=== PATIENT | female | born 1980 | race Caucasian/White ===

== ENCOUNTER 2017-02-17 09:03 | Emergency (ER) | payer BC ==
[2017-02-17] MEDS ORDERED: ASPIRIN 325 MG TABLET PO ONE (09:27)
--- NOTE | 2017-02-17 09:35 | Emergency Department Record ---
Anxiety - General Chief Complaint: Panic attack Stated Complaint: ANXIETY Time Seen by Provider: 02/17/17 09:18 Source: Patient Mode of Arrival: Ambulatory Limitations: No limitations - History of Present Illness Initial Comments: The patient is here from [facility] due to not feeling well for 2 days. She has had sharp anterior L sided CP off and on and it is associated with mild SOB at times. She denies any nausea, sweating, lightheadedness or back pain. The patient has been under a lot of stress lately and also did see her PCP last week who started her on a new OCP to manage her hormones. She started that medicine 5 days ago. She has no hx of any cardiac issues, anxiety, recent travel , leg pain, or swelling, CP with exertion or TRAN. The patient's only cardiac risk factor is possibly a family hx of CAD. MD Complaint: Other Onset/Timin -: Days(s) Place: Home Previous History of Same: Yes (not this bad) Provoking factors: Emotional stress, Work/job stress, Medication change Improves With: Nothing Worsens With: Nothing Associated symptoms: Chest pain, Headaches, Palpitations, Shortness of breath - Related Data Home Medications: Home Medications Medication Instructions Recorded Confirmed Last Taken Ethinyl Estradiol/Drospirenone 1 each PO DAILY 02/17/17 02/17/17 1 Day Ago [Ifeoma 28 Tablet] ~02/16/17 Previous Rx's Medication Instructions Recorded Lorazepam [Ativan] 1 mg PO Q12HR #6 tablet 02/17/17 Allergies/Adverse Reactions: Allergies Allergy/AdvReac Type Severity Reaction Status Date / Time No Known Drug Allergies Allergy Verified 02/17/17 09:11 Travel Screening - Travel/Exposure Within Last 30 Days Have you traveled within the last 30 days?: No - Travel/Exposure Within Last Year Have you traveled outside the [place] in the last year?: No - Additonal Travel Details Have you been exposed to anyone with a communicable illness?: No - Travel Symptoms Symptom Screening: None Review of Systems Constitutional: Denies: Chills, Fever Eyes: Denies: Eye discharge ENT: Denies: Congestion Respiratory: Denies: Cough, Dyspnea Past Medical History - SOCIAL HISTORY Smoking Status: Never smoker Alcohol Use: Occasional Drug Use: None - RESPIRATORY Hx Respiratory Disorders: No - CARDIOVASCULAR Hx Cardio Disorders: No - NEURO Hx Neuro Disorders: No - GI Hx GI Disorders: Yes Hx Pancreatitis: Yes Comment:: Colitis. - Hx Genitourinary Disorders: No - ENDOCRINE Hx Endocrine Disorders: Yes Hx Thyroid Disease: Yes - MUSCULOSKELETAL Hx Musculoskeletal Disorders: No - PSYCH Hx Anxiety: Yes (intermittant) - HEMATOLOGY/ONCOLOGY Hx Hematology/Oncology Disorders: No Family Medical History Any Significant Family History?: Yes Hx Diabetes: Mother Hx Heart Disease: Grandparents Hx HTN: Father, Mother Hx Liver Disease: Mother, Grandparents Physical Exam - General General Appearance: Alert, Oriented x3, Cooperative, No acute distress - Head Head exam: Atraumatic, Normocephalic, Normal inspection - Eye Eye exam: Normal appearance, PERRL, EOMI - ENT Throat exam: Normal inspection. negative: Tonsillar erythema, Tonsillar exudate - Neck Neck exam: Normal inspection, Full ROM. negative: Tenderness - Respiratory Respiratory exam: Normal lung sounds bilaterally. negative: Chest wall tenderness, Respiratory distress - Cardiovascular Cardiovascular Exam: Regular rate, Normal rhythm, Normal heart sounds. negative : Diastolic murmur, Systolic murmur - GI/Abdominal GI/Abdominal exam: Soft, Normal bowel sounds. negative: Tenderness - Extremities Extremities exam: Normal inspection, Full ROM, Normal capillary refill. negative: Calf tenderness, Pedal edema, Tenderness - Back Back exam: Reports: Normal inspection - Neurological Neurological exam: Alert, Oriented X3. negative: Motor sensory deficit - Psychiatric Psychiatric exam: Anxious (mildly.) Course Vital Signs 02/17/17 09:06 Temperature 98.5 F Pulse Rate 87 Respiratory 18 Rate Blood Pressure 152/116 Pulse Ox 99 - Reevaluation(s) Reevaluation #1: The patient is doing much better and is much more calm. She denies any significant CP or any SOB or FORREST and is no longer anxious. I did explain to her that her test results all are very normal and do point to anxiety as the probable cause of her issues. Because it is not 100% clear if she is having any cardiac issues I did recommend hospital admission for a stress test and cardiac echo but the patient is refusing. I explained to her that by NOT being admitted she could go home and have an MS, stroke, become disabled and even . By leaving the ER and not being admitted she would be assuming those risks and we cannot be held liable for those issues. The patient presently has proper decision making capacity and was told to see her PCP early next week and to return to the ER for any new or changing symptoms. 02/17/17 11:12 Medical Decision Making - Data Complexity MDM Data: Labs Ordered and/or Reviewed, X-Ray Ordered and/or Reviewed, EKG Ordered and/or Reviewed - Lab Data Result diagrams: 02/17/17 09:58 02/17/17 09:58 - EKG Data -: EKG Interpreted by Me EKG: No Acute Changes, Normal EKG - Radiology Data Radiology results: Report reviewed (CXR: Neg.) Disposition Disposition: Discharge Clinical Impression: Anxiety Disposition: Home, Self-Care Condition: (1) Good Instructions: Panic Disorder (ED) Additional Instructions: Please stop your new hormone medicine and use the Ativan as directed. Please see your PCP early next week for recheck. Return to the ER for any worsening or increasing pain, or any trouble breathing or shortness of breath. Prescriptions: Lorazepam [Ativan] 1 mg PO Q12HR #6 tablet Forms: Patient Portal Access Time of Disposition: 11:17 Quality - Quality Measures Quality Measures: N/A - Blood Pressure Screening View Details: Yes Does Patient Have Any of the Following: No Blood Pressure Classification: Hypertensive Reading Systolic Measurement: 152 Diastolic Measurement: 116 Screening for High Blood Pressure: < Pre-Hypertensive BP, F/U Documented > [ G8950] Pre-Hypertensive Follow-up Interventions: Referral to alternative/primary care provider.
[2017-02-17 10:08] LABS: BASO % 0.4 % (0-6); EOS % 2.9 % (0-6); GRAN % 58.4 % (47-80); HEMATOCRIT 40.1 % (35.0-47.0); HEMOGLOBIN 12.8 gm/dl (11.6-16.0); LYMPH % 30.6 % (16-45); MEAN CELL VOLUME 89.7 fl (81-97); MEAN CORPUSCULAR HEMOGLOBIN 28.6 pg (27-33); MEAN CORPUSCULAR HGB CONC 31.9 g/dl (32-36); MEAN PLATELET VOLUME 10.5 fl (7.4-10.4); MONO % 7.7 % (0-9); PLATELET COUNT 385 K/uL (130-400); RED BLOOD COUNT 4.47 M/uL (3.80-5.40); RED CELL DISTRIBUTION WIDTH 14.1 % (11.5-14.5); WHITE BLOOD COUNT W/O DIFF 7.3 K/uL (4.2-12.2)
[2017-02-17 10:24] LABS: INR 0.93
[2017-02-17 10:39] LABS: CREATININE 0.7 mg/dL (0.5-0.9); EST GLOMERULAR FILTRATION RATE > 60 mL/min; GLUCOSE,RANDOM 95 mg/dL (74-109)
[2017-02-17 10:40] LABS: CKMB < 1.0 ng/mL (<3.77); CREATINE PHOSPHOKINASE 82 U/L (26-192)
[2017-02-17 10:47] LABS: BLOOD UREA NITROGEN 12 mg/dL (6-20); THYROID STIMULATING HORMONE 1.85 uIU/mL (0.270-4.20)
--- NOTE | 2017-02-18 12:30 | RADIOLOGY REPORT ---
EXAM: CHEST 2 VIEWS HISTORY: DIFFICULTY IN BREATHING. TECHNIQUE: Frontal and lateral views of the chest were performed. FINDINGS: Heart size is normal. Lung ko are clear. Osseous structures are normal. IMPRESSION: NEGATIVE CHEST EXAMINATION. JOB NUMBER: [id number] MTDD
== END 2017-02-17 11:21 | disposition home or self-care (01) ==
LOC: ER 09:03
DX: F41.9 Anxiety disorder, unspecified (principal); R07.89 Other chest pain; R06.02 Shortness of breath; R51 Headache
CPT/HCPCS: 71020; 80048; 82550; 82553; 84443; 84484; 85025; 85379; 85610; 85730; 93005; 93010; 99284

== ENCOUNTER 2018-06-08 14:52 | Emergency (ER) | payer BC ==
--- NOTE | 2018-06-08 15:13 | Emergency Department Record ---
History of Present Illness - General Chief Complaint: Shortness of breath Stated Complaint: CHEST DISCOMFORT Time Seen by Provider: 06/08/18 14:56 Source: Patient, Old records reviewed Mode of Arrival: Ambulatory Limitations: No limitations - History of Present Illness Initial Comments: 37 yo female presents with a feeling of shortness of breath that started around 10am. She states throughout the day she has had a mild dry cough. She has felt tired. She states when she lays down, coughs, or takes a deep breath she has a sensation of not being able to take the deep breath. She feels a tightness with coughing, laying down (relieved sitting up), and taking a deep breath. No fever. 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 She does not smoke, no cancer history, no recent travel or surgery, no HRT, no family history of CAD or PE/DVT. NO DM, elevated cholesterol, HTN. She reports she has had pneumonia several times in the past. She reports the symptoms are similar. MD Complaint: Cough, Pain with inspiration, Shortness of breath -: Hour(s) Quality: Other Consistency: Intermittent Improves With: Rest (shallow breathing, sitting up) Worsens With: Coughing, Inspiration, Lying flat Known History Of: Other (History of pneumonia once a year) Associated Symptoms: Chest pain, Cough Treatments Prior to Arrival: None - Related Data Home Medications Medication Instructions Recorded Confirmed Last Taken Omeprazole [Prilosec] 20 mg PO DAILY 06/08/18 06/08/18 Unknown Previous Rx's Medication Instructions Recorded Azithromycin [Zithromax] 250 mg PO DAILY #4 tablet 06/08/18 Benzonatate [Tessalon] 2 cap PO Q8H PRN #30 cap 06/08/18 Allergies Allergy/AdvReac Type Severity Reaction Status Date / Time No Known Drug Allergies Allergy Unverified 06/08/18 14:28 Review of Systems Constitutional: Denies: Chills, Fever, Malaise, Night sweats, Weakness Eyes: Denies: Eye discharge, Eye pain, Photophobia, Vision change ENT: Denies: Congestion, Ear pain, Epistaxis, Throat pain Respiratory: Reports: As per HPI, Cough, Dyspnea. Denies: Hemoptysis, Stridor, Wheezes Cardiovascular: Reports: As per HPI, Chest pain. Denies: Dyspnea on exertion, Edema, Palpitations, Syncope Endocrine: Denies: Fatigue, Polydipsia, Polyuria Gastrointestinal: Denies: Abdominal pain, Diarrhea, Nausea, Vomiting Genitourinary: Denies: Dysuria, Urgency Musculoskeletal: Denies: Arthralgia, Back pain, Myalgia Skin: Denies: Bruising, Change in color, Rash Neurological: Denies: Confusion, Headache, Weakness Psychiatric: Denies: Anxiety Hematological/Lymphatic: Denies: Blood Clots, Easy bleeding, Easy bruising, Swollen glands Past Medical History - SOCIAL HISTORY Smoking Status: Never smoker Drug Use: None - RESPIRATORY Hx Respiratory Disorders: No - CARDIOVASCULAR Hx Cardio Disorders: No - NEURO Hx Neuro Disorders: No - GI Hx GI Disorders: Yes Hx Pancreatitis: Yes Comment:: Colitis. - Hx Genitourinary Disorders: No - ENDOCRINE Hx Endocrine Disorders: Yes Hx Thyroid Disease: Yes - MUSCULOSKELETAL Hx Musculoskeletal Disorders: No - PSYCH Hx Anxiety: Yes (intermittant) - HEMATOLOGY/ONCOLOGY Hx Hematology/Oncology Disorders: No Family Medical History Hx Diabetes: Mother Hx Heart Disease: Grandparents Hx HTN: Father, Mother Hx Liver Disease: Mother, Grandparents Physical Exam - General General Appearance: Alert, Oriented x3, Cooperative, No acute distress Limitations: No limitations - Head Head exam: Atraumatic, Normocephalic, Normal inspection - Eye Eye exam: Normal appearance, PERRL. negative: Conjunctival injection, Scleral icterus - ENT ENT exam: Normal exam, Mucous membranes moist, Normal orophraynx Ear exam: Normal external inspection Nasal Exam: Normal inspection Mouth exam: Normal external inspection Teeth exam: Normal inspection Throat exam: Normal inspection - Neck Neck exam: Normal inspection, Full ROM. negative: Lymphadenopathy, Tenderness, Thyromegaly - Respiratory Respiratory exam: Normal lung sounds bilaterally. negative: Accessory muscle use, Chest wall tenderness, Decreased breath sounds, Prolonged expiratory, Rales , Respiratory distress, Rhonchi, Stridor, Wheezes - Cardiovascular Cardiovascular Exam: Regular rate, Normal rhythm, Normal heart sounds. negative : Diastolic murmur, Systolic murmur Peripheral Pulses: 2+: Radial (R), Radial (L) - GI/Abdominal GI/Abdominal exam: Soft. negative: Distended, Guarding, Tenderness - Rectal Rectal exam: Deferred - exam: Deferred - Extremities Extremities exam: Normal inspection. negative: Pedal edema, Tenderness - Back Back exam: Denies: CVA tenderness (R), CVA tenderness (L), Tenderness - Neurological Neurological exam: Alert, Normal gait, Oriented X3 - Psychiatric Psychiatric exam: Normal affect, Normal mood. negative: Agitated, Anxious - Skin Skin exam: Dry, Intact, Normal color, Warm Course - Reevaluation(s) Reevaluation #1: EKG #1: Rate: 94 Rhythm: Sinus Remlap: Left Intervals: QTc [address] ST segments: Normal Probable LVH Prior: No changes on today's EKG from the prior on 02/17/17 06/08/18 14:59 06/08/18 16:00 The D-Dimer is negative The Troponin is negative The CBC demonstrated a WBC count of 22 with a left shift An Influenza swab was sent with her cough, and symptoms CXR ordered. 06/08/18 16:26 The influenza swabs are negative 06/08/18 16:33 The patient is HEART SCORE of 2 (BMI >30, Possible LVH - not new). 06/08/18 16:35 06/08/18 16:45 The CXR was read as negative Given her symptoms and history of pneumonia in the past with the current leukocytosis I recommend antibiotics at this time Medical Decision Making - Lab Data Result diagrams: 06/08/18 15:00 06/08/18 15:00 Disposition Disposition: Discharge Clinical Impression: Cough, Atypical chest pain Disposition: Home, Self-Care Condition: (1) Good Instructions: Dyspnea (ED), Chest Pain (ED) Additional Instructions: Call your doctor for the next available follow up appointment Return to the ER for a recheck if worse, any new concerns or questions over the weekend Take the prescriptions provided as directed Review this ER visit and the tests performed with your family doctor Prescriptions: Azithromycin [Zithromax] 250 mg PO DAILY #4 tablet Benzonatate [Tessalon] 2 cap PO Q8H PRN #30 cap PRN Reason: Cough Referrals: SUSHMA DE LA CRUZ M.D. [MEDICAL DOCTOR] - [facility] [Provider Group] Forms: Patient Portal Access Time of Disposition: 16:46 Quality - Blood Pressure Screening Does Patient Have Any of the Following: No Blood Pressure Classification: Hypertensive Reading Systolic Measurement: 142 Diastolic Measurement: 105 Pre-Hypertensive Follow-up Interventions: Referral to alternative/primary care provider.
[2018-06-08 15:32] LABS: HEMATOCRIT 42.9 % (35.0-47.0); HEMOGLOBIN 14.2 gm/dl (11.6-16.0); MEAN CELL VOLUME 90.1 fl (81-97); MEAN CORPUSCULAR HEMOGLOBIN 29.8 pg (27-33); MEAN CORPUSCULAR HGB CONC 33.1 g/dl (32-36); MEAN PLATELET VOLUME 10.7 fl (7.4-10.4); PLATELET COUNT 396 K/uL (130-400); RED BLOOD COUNT 4.76 M/uL (3.80-5.40); RED CELL DISTRIBUTION WIDTH 14.2 % (11.5-14.5); URINE APPEARANCE CLEAR; URINE BILIRUBIN NEGATIVE (NEGATIVE); URINE BLOOD NEGATIVE (NEGATIVE); URINE COLOR YELLOW; URINE GLUCOSE (UA) NEGATIVE (NEGATIVE); URINE KETONE 40 mg/dL (NEGATIVE); URINE LEUKOCYTE ESTERASE SMALL (NEGATIVE); URINE NITRITE NEGATIVE (NEGATIVE); URINE PROTEIN NEGATIVE (NEGATIVE); URINE UROBILINOGEN 0.2 E.U./dL (0.20 - 1.00)
[2018-06-08 15:36] LABS: WHITE BLOOD COUNT W/O DIFF 22.1 K/uL (4.2-12.2)
[2018-06-08 15:39] LABS: PLATELET ESTIMATE NORMAL (NORMAL)
[2018-06-08 15:41] LABS: HCG,QUALITATIVE URINE NEGATIVE (NEGATIVE); URINE BACTERIA NONE SEEN; URINE EPITHELIAL CELLS 0 - 2 (FEW); URINE RBC NONE SEEN (NONE SEEN)
[2018-06-08 15:45] LABS: BLOOD UREA NITROGEN 13 mg/dL (6-20); CREATININE 0.7 mg/dL (0.5-0.9); EST GLOMERULAR FILTRATION RATE > 60 mL/min
[2018-06-08 15:46] LABS: TOTAL PROTEIN 8.5 g/dL (6.6-8.7)
[2018-06-08 15:48] LABS: GLUCOSE,RANDOM 75 mg/dL (74-109)
[2018-06-08 15:50] LABS: ALT/SGPT 27 U/L (<33)
[2018-06-08 15:51] LABS: ALB/GLOB RATIO 1.4 (1.1-1.8); ALBUMIN 4.9 g/dL (4.0-5.0); ALKALINE PHOSPHATASE 101 U/L (45-87); AST/SGOT 26 U/L (10.0-35.0)
[2018-06-08] MEDS ORDERED: 0.9 % SODIUM CHLORIDE 1,000 ML BAG IV ONE (15:53)
[2018-06-08 16:02] LABS: THYROID STIMULATING HORMONE 1.32 uIU/mL (0.270-4.20)
[2018-06-08 16:21] LABS: INFLUENZA A NEGATIVE (NEGATIVE); INFLUENZA B NEGATIVE (NEGATIVE)
[2018-06-08] MEDS ORDERED: AZITHROMYCIN 500 MG TABLET PO ONE (16:37)
--- NOTE | 2018-06-12 08:02 | RADIOLOGY REPORT ---
EXAM: CHEST, TWO VIEWS HISTORY: CHEST CONGESTION AND TIGHTNESS. TECHNIQUE: Two views of the chest were obtained. FINDINGS: The lungs are clear. The cardiac size and pulmonary vascularity are normal. IMPRESSION: NEGATIVE CHEST EXAMINATION. JOB NUMBER: [id number] MTDD
== END 2018-06-08 17:00 | disposition home or self-care (01) ==
LOC: ER 14:52
DX: R07.89 Other chest pain (principal); R05 Cough; E03.9 Hypothyroidism, unspecified
CPT/HCPCS: 71046; 80053; 81001; 81025; 84443; 84484; 85027; 85379; 87400; 93005; 93010; 99283; 99284; J7030

== ENCOUNTER 2018-06-28 12:39 | Observation (INO) | payer BC ==
[2018-06-28] MEDS ORDERED: 0.9 % SODIUM CHLORIDE 1,000 ML BAG IV ONE ×2 (12:58→13:59)
--- NOTE | 2018-06-28 13:04 | Emergency Department Record ---
History of Present Illness - General Chief complaint: Female Urogenital Problem Stated complaint: ILL NON SPECIFIC Time Seen by Provider: 06/28/18 12:49 Source: Patient Mode of Arrival: Ambulatory Limitations: No limitations - History of Present Illness Initial comments: The patient is here due to not feeling well for 2 days. She has had body aches and bilateral flank pain with vomiting today and a mild cough. Now she also feels like she is unable to take a deep breath in. The patient was seen at the [facility] today and found to have a high WBC so she was sent to the ER. Complaint: Other Onset/Timin -: Days(s) Severity: Moderate Severity scale (1-10): 7 Quality: Aching Improves with: None Worsens with: None Patient : No Associated Symptoms: Abdominal pain, Nausea/vomiting, Other - Related Data Home Medications Medication Instructions Recorded Confirmed Last Taken Vitamin B Complex 1 each PO DAILY 06/28/18 06/28/18 Unknown Allergies Allergy/AdvReac Type Severity Reaction Status Date / Time No Known Drug Allergies Allergy Verified 06/28/18 12:46 Travel Screening - Travel/Exposure Within Last 30 Days Have you traveled within the last 30 days?: No Review of Systems Constitutional: Denies: Chills, Fever Eyes: Denies: Eye discharge ENT: Denies: Congestion Respiratory: Denies: Cough, Dyspnea Cardiovascular: Denies: Arrhythmia, Chest pain Endocrine: Reports: Fatigue Gastrointestinal: Reports: Nausea. Denies: Diarrhea, Vomiting Genitourinary: Denies: Dysuria Musculoskeletal: Reports: Back pain. Denies: Arthralgia Skin: Denies: Bruising Past Medical History - SOCIAL HISTORY Smoking Status: Never smoker Alcohol Use: Rare Drug Use: None - RESPIRATORY Hx Respiratory Disorders: No - CARDIOVASCULAR Hx Cardio Disorders: No - NEURO Hx Neuro Disorders: No - GI Hx GI Disorders: Yes Hx Pancreatitis: Yes Comment:: Colitis. - Hx Genitourinary Disorders: No - ENDOCRINE Hx Endocrine Disorders: Yes Hx Thyroid Disease: Yes - MUSCULOSKELETAL Hx Musculoskeletal Disorders: No - PSYCH Hx Psych Problems: Yes Hx Anxiety: Yes (intermittant) - HEMATOLOGY/ONCOLOGY Hx Hematology/Oncology Disorders: No Family Medical History Any Significant Family History?: Yes Hx Diabetes: Mother Hx Heart Disease: Grandparents Hx HTN: Father, Mother Hx Liver Disease: Mother, Grandparents Physical Exam - General General Appearance: Alert, Oriented x3, Cooperative, No acute distress - Head Head exam: Atraumatic, Normocephalic, Normal inspection - Eye Eye exam: Normal appearance, PERRL, EOMI - Neck Neck exam: Normal inspection, Full ROM. negative: Tenderness - Respiratory Respiratory exam: Normal lung sounds bilaterally. negative: Decreased breath sounds, Respiratory distress, Rhonchi, Stridor, Wheezes - Cardiovascular Cardiovascular Exam: Regular rate, Normal rhythm, Normal heart sounds - GI/Abdominal GI/Abdominal exam: Soft, Normal bowel sounds. negative: Tenderness - Extremities Extremities exam: Normal inspection, Full ROM, Normal capillary refill. negative: Tenderness - Neurological Neurological exam: Alert. negative: Motor sensory deficit Course Vital Signs 06/28/18 12:41 Temperature 97.9 F Pulse Rate 93 H Respiratory 18 Rate Blood Pressure 114/82 Pulse Ox 99 - Reevaluation(s) Reevaluation #1: The patient is doing well at this time and is very hemodynamically stable with normal vitals and no fever. Her lab work is worrisome for a bacterial infection and with her coughing getting worse and bilateral atelectasis on CT I am concerned she may have early pneumonia. I did explain to the patient that due to the elevated WBC, CRP and Procalcitonin I do feel she will need to be treated for pneumonia. We will give the patient a dose of IV Rocephin and oral Doxy and will discharge the patient on Doxycycline for home. 06/28/18 15:24 Reevaluation #2: The patient did have an episode of not feeling well and vomiting while in the ED. Her cough seems to be worsening and she is having nausea and vomiting. Due to the constellation of symptoms and lab results I do feel the safest course of action is to admit the patient to the hospital overnight for IVF and IV ABx. The patient agrees to the plan. I did also discuss the case with Taylor ([employer] NURSE) and she does accept the patient for Dr. Veliz. 06/28/18 16:24 Medical Decision Making - Data Complexity MDM Data: Labs Ordered and/or Reviewed, X-Ray Ordered and/or Reviewed, EKG Ordered and/or Reviewed - EKG Data -: EKG Interpreted by Me EKG: No Acute Changes, Normal EKG, Unchanged From Previous - Radiology Data Radiology results: Report reviewed (CXR: Neg per Rad.) Disposition Disposition: Admit Clinical Impression: Pneumonia Qualifiers: Pneumonia type: due to unspecified organism Laterality: unspecified laterality Lung location: unspecified part of lung Qualified Code(s): J18.9 - Pneumonia, unspecified organism Disposition: Still a Patient at [facility] Decision to Admit: Admit from ER Decision to Admit Date: 06/28/18 Decision to Admit Time: 16:26 Accepting Physician: Jose Alfredo Time Discussed w/Accepting Physician: 16:26 Condition: (2) Stable Forms: Patient Portal Access Time of Disposition: 16:26 Quality - Quality Measures Quality Measures: N/A - Blood Pressure Screening View Details: Yes Does Patient Have Any of the Following: No Blood Pressure Classification: Pre-Hypertensive BP Reading Systolic Measurement: 114 Diastolic Measurement: 82 Screening for High Blood Pressure: < Pre-Hypertensive BP, F/U Documented > [ G8950] Pre-Hypertensive Follow-up Interventions: Referral to alternative/primary care provider.
[2018-06-28 13:32] LABS: URINE APPEARANCE CLEAR; URINE BILIRUBIN SMALL (NEGATIVE); URINE BLOOD TRACE-I (NEGATIVE); URINE COLOR YELLOW; URINE GLUCOSE (UA) NEGATIVE (NEGATIVE); URINE LEUKOCYTE ESTERASE NEGATIVE (NEGATIVE); URINE NITRITE NEGATIVE (NEGATIVE); URINE PROTEIN NEGATIVE (NEGATIVE); URINE UROBILINOGEN 0.2 E.U./dL (0.20 - 1.00)
[2018-06-28 13:33] LABS: URINE KETONE 160 mg/dL (NEGATIVE)
[2018-06-28 13:40] LABS: HCG,QUALITATIVE URINE NEGATIVE (NEGATIVE); URINE EPITHELIAL CELLS 0 - 2 (FEW); URINE WBC NONE SEEN (0-2/hpf)
[2018-06-28 14:13] LABS: C-REACTIVE PROTEIN 10.56 mg/dL (<0.5)
[2018-06-28] MEDS ORDERED: CEFTRIAXONE 1GM/50ML BAG 1 GM/50 ML BAG IVPB ONE (15:22)
[2018-06-28] MEDS ORDERED: AZITHROMYCIN 500 MG TABLET PO ONE (15:23)
[2018-06-28] MEDS ORDERED: DOXYCYCLINE HYCLATE 100 MG CAPSULE PO ONE (15:23)
[2018-06-28] MEDS ORDERED: SUCRALFATE 1 G/10 ML UD PO ONE (16:10)
[2018-06-28] MEDS ORDERED: ONDANSETRON HCL IV 4 MG/2 ML VIAL IVP ONE (16:10)
[2018-06-28] MEDS ORDERED: 0.9 % SODIUM CHLORIDE 1000ML 1,000 ML IV PRN (17:52)
[2018-06-28] MEDS ORDERED: ACETAMINOPHEN 325 MG TAB PO PRN (17:52)
[2018-06-28] MEDS: DOXYCYCLINE HYCLATE 100 MG CAPSULE PO SCH (21:35)
[2018-06-29] MEDS ORDERED: CEFTRIAXONE SODIUM 1 GM in 0.9 % SODIUM CHLORIDE 100ML 100 ML IVPB SCH (03:00)
[2018-06-29 06:39] LABS: BASO % 0.2 % (0-6); EOS % 3.9 % (0-6); GRAN % 78.8 % (47-80); HEMATOCRIT 36.4 % (35.0-47.0); HEMOGLOBIN 11.5 gm/dl (11.6-16.0); MEAN CELL VOLUME 92.9 fl (81-97); MEAN CORPUSCULAR HEMOGLOBIN 29.3 pg (27-33); MEAN CORPUSCULAR HGB CONC 31.6 g/dl (32-36); MEAN PLATELET VOLUME 11.2 fl (7.4-10.4); MONO % 6.1 % (0-9); PLATELET COUNT 287 K/uL (130-400); RED BLOOD COUNT 3.92 M/uL (3.80-5.40); RED CELL DISTRIBUTION WIDTH 14.6 % (11.5-14.5); WHITE BLOOD COUNT W/O DIFF 11.3 K/uL (4.2-12.2)
[2018-06-29 06:56] LABS: ALB/GLOB RATIO 1.4 (1.1-1.8); ALBUMIN 3.6 g/dL (4.0-5.0); ALKALINE PHOSPHATASE 66 U/L (35-104); ALT/SGPT 14 U/L (<33); AST/SGOT 11 U/L (10.0-35.0); BLOOD UREA NITROGEN 5 mg/dL (6-20); C-REACTIVE PROTEIN 9.86 mg/dL (<0.5); CREATININE 0.6 mg/dL (0.5-0.9); EST GLOMERULAR FILTRATION RATE > 60 mL/min; GLUCOSE,RANDOM 98 mg/dL (74-109); TOTAL PROTEIN 6.1 g/dL (6.6-8.7)
[2018-06-29] MEDS ORDERED: PANTOPRAZOLE SODIUM 40 MG TABLET PO SCH (07:00)
[2018-06-29] MEDS ORDERED: LEVOTHYROXINE SODIUM 100 MCG TABLET PO SCH (07:00)
--- NOTE | 2018-06-29 08:22 | CT SCAN REPORT ---
EXAM: CT OF THE ABDOMEN AND PELVIS WITHOUT CONTRAST HISTORY: LOWER BACK PAIN WITH NAUSEA AND VOMITING FOR TWO DAYS. ELEVATED SERUM WHITE BLOOD CELL COUNT. PRIOR CHOLECYSTECTOMY. TECHNIQUE: Routine helical CT examination of the abdomen and pelvis was performed without oral or intravenous contrast administration. Lack of oral and IV contrast utilization limits evaluation of the bowel and solid viscera respectively. Comparison: CT abdomen and pelvis with contrast dated 03/13/16. FINDINGS: Increased image noise due to large body habitus also mildly limits evaluation. Patchy air space opacities are noted dependently in each lung base consistent with atelectasis or less likely infiltrate. A small subpleural nodular opacity projects at the level of the lateral right lung base measuring 5 mm. This is likely post inflammatory. A 2 mm subpleural nodule is also demonstrated in the lateral segment of the right middle lobe as seen on image 11. No pleural or pericardial effusion. The heart is not enlarged. The liver, spleen, pancreas, and adrenal glands are normal in appearance. The gallbladder is surgically absent and no biliary ductal dilatation is seen. The kidneys are normal in size, position and are smoothly marginated. There is redemonstration of a nonobstructing calculus within the lower pole of the right kidney measuring 6 mm in diameter. This is unchanged. No other nephrolithiasis nor renal mass. No gross collecting system dilatation. No ureteral calculus is identified. No intrinsic urinary bladder abnormality is seen. No intraabdominal nor retroperitoneal lymphadenopathy. The vasculature as visualized is unremarkable. There is trace free fluid in the cul-de-sac. No pelvic mass nor adenopathy. The ovaries are not enlarged. The uterus is in the midline and without evidence of mass. No intrinsic urinary bladder abnormality. No gross bowel dilatation nor bowel wall thickening. The appendix is not visualized with confidence though no inflammatory changes are noted in its expected location. No free intraperitoneal air. No lytic or blastic bone lesion. Mild marginal end plate spurring is scattered throughout the visualized spine. There is a small nodular soft tissue density within the lower abdominal wall just anterior to the right rectus sheath as seen on series 3 image 151. This measures 16 x 8 mm. The etiology of this is uncertain. This may relate to post surgical scarring given history of prior . IMPRESSION: 1. EXAM LIMITED BY LACK OF ORAL AND IV CONTRAST UTILIZATION WELL BY INCREASED IMAGE NOISE DUE TO LARGE BODY HABITUS. 2. NO CONVINCING CT EVIDENCE OF AN ACUTE INTRAABDOMINAL NOR INTRAPELVIC PROCESS. 3. TRACE FREE FLUID IN THE CUL-DE-SAC IS NONSPECIFIC, BUT LIKELY PHYSIOLOGIC. 4. STABLE 6 MM NONOBSTRUCTING CALCULUS IN THE LOWER POLE OF THE RIGHT KIDNEY. NO OBSTRUCTIVE UROPATHY. 5. SMALL NODULAR SOFT TISSUE DENSITY WITHIN THE LOWER ABDOMINAL WALL RIGHT OF MIDLINE. THIS IS NONSPECIFIC, BUT MAY RELATE TO POST SURGICAL SCARRING. 6. NONVISUALIZATION OF THE APPENDIX THOUGH NO INFLAMMATORY CHANGES ARE NOTED IN ITS EXPECTED LOCATION. 7. PATCHY AIR SPACE OPACITIES WITHIN THE DEPENDENT LUNG BASES CONSISTENT WITH ATELECTASIS OR LESS LIKELY INFILTRATE. 8. THERE ARE A COUPLE SMALL NODULAR OPACITIES WITHIN THE RIGHT MIDDLE LOBE. THESE ARE LIKELY POST INFLAMMATORY AND IN THE ABSENCE OF SMOKING HISTORY AND ABSENCE OF KNOWN MALIGNANT PRIMARY TUMOR, NO FURTHER EVALUATION IS NECESSARY. OTHERWISE, FOLLOW-UP EXAMINATION IN TWELVE MONTHS IS RECOMMENDED. JOB NUMBER: [id number] MTDD
[2018-06-29] MEDS: DOXYCYCLINE HYCLATE 100 MG CAPSULE PO SCH (09:39)
[2018-06-29] MEDS ORDERED: BIFIDOBACTERIUM INFANTIS 4 MG CAPSULE PO SCH (10:00)
[2018-06-29] MEDS ORDERED: GUAIFENESIN 1,200 MG TABLET PO SCH (10:00)
--- NOTE | 2018-06-29 10:37 | History & Physical ---
History of Present Illness - Date of Service Date of Service for History & Physical: 06/29/18 - History of Present Illness Admitting Diagnosis: 1. Acute Pneumonia History of Present Illness: Mrs. Mcgill is a pleasant 37 year-old female who presented to the ED on with c/o not feeling well for 2 days. She reported body aches and bilateral flank pain with vomiting that day and mild cough. She reported inability to take a deep breath. She was seen at [facility] referred to the ED due to elevated WBC and concern for possible kidney stone/infection due to hematuria. Her history includes pancreatitis, colitis, hypothyroidism, anxiety, and kidney stone. In the ED, her vitals were: BP 114/82, HR 93, RR 18, 99% on room air and T 97.9F. Her WBC was 20,800, 8% bands, prolcalcitonin 0.329, CRP 10.56. CT demonstrated atelectasis, possible early pneumonia. A 6mm calculus in lower pole of right kidney- non-obstructing. She was going to be d/c'd home on oral doxy, however, she has an episode of nausea and vomiting. She was admitted observation with planned IV abx and IVF. 06/29/18: Pt. is sitting up in bed. She reports coughing up large amounts of thick sputum today. Labs have greatly improved this morning, WBC now 11.3, procalcitonin 0.127. Her vitals have remained stable, she's remained afebrile, and she denies nausea. She is tolerating regular diet well. Added mucinex, will plan to change abx to PO, will plan to d/c home this afternoon if pt. continues to improve. PCP: Paige Shea Travel Screening - Travel/Exposure Within Last 30 Days Have you traveled within the last 30 days?: No - Travel/Exposure Within Last Year Have you traveled outside the [place] in the last year?: No - Additonal Travel Details Have you been exposed to anyone with a communicable illness?: No - Travel Symptoms Symptom Screening: Headache, Weakness, Fatigue, Vomiting, Stomach Pain, Lack of Appetite, Chills Review of Systems Constitutional: Denies: Chills, Fever Eyes: Denies: Eye discharge ENT: Denies: Congestion Respiratory: Denies: Cough, Dyspnea Cardiovascular: Denies: Arrhythmia, Chest pain Endocrine: Reports: Fatigue Gastrointestinal: Reports: Nausea. Denies: Diarrhea, Vomiting Genitourinary: Denies: Dysuria Musculoskeletal: Reports: Back pain. Denies: Arthralgia Skin: Denies: Bruising Past Medical History - SOCIAL HISTORY Smoking Status: Never smoker Alcohol Use: Occasional Drug Use: None - RESPIRATORY Hx Respiratory Disorders: No - CARDIOVASCULAR Hx Cardio Disorders: No Hx Abnormal EKG: No Hx Cardiac Cath: No Hx Chest Pain: No Hx CHF: No Hx Deep Vein Thrombosis: No Hx Edema: No Hx Heart Attack: No Hx Hypertension: No Hx Hypotension: No Hx Irregular Heartbeat: No Hx Palpitations: No Hx Pacemaker/Defib: No Hx Vascular Disease: No - NEURO Hx Neuro Disorders: No Hx Brain Tumor: No Hx CVA: No Hx Dementia: No Hx Dizziness: No Hx Headaches: Yes Hx Neuropathy: No Hx Parkinson's Disease: No Hx Seizures: No Hx Speech Problem: No Hx TIA: No - GI Hx GI Disorders: Yes Hx Abdominal Pain: No Hx Celiac Disease: No Hx Crohn's Disease: No Hx Diverticulitis: No Hx GI Bleed: No Hx Reflux: No Hx Hepatitis/Jaundice: No Hx Hiatal Hernia: No Hx Irritable Bowel: No Hx Liver Disease: No Hx Nausea/Vomiting: Yes Hx Obstructive Bowel: No Hx Pancreatitis: Yes Hx Rectal Bleeding: No Hx Ulcer: No Hx Wt Loss/Wt Gain: No Hx of Polyps: No Comment:: Colitis. - Hx Genitourinary Disorders: No Hx Bladder Problem: No Hx Dialysis: No Hx Kidney Stones: Yes Hx Renal Disease: No Hx UTI: No - ENDOCRINE Hx Endocrine Disorders: Yes Hx Diabetes: No Hx Thyroid Disease: Yes - MUSCULOSKELETAL Hx Musculoskeletal Disorders: No Hx Arthritis: No Hx Back Injury: No Hx Fibromyalgia: No Hx Gout: No Hx Musculoskeletal Disease: No Hx Osteoporosis: No - PSYCH Hx Psych Problems: Yes Hx Anxiety: No (intermittant) Hx Behavior Problems: No Hx Depression: No Hx Emotional Abuse: No Hx Sexual Abuse: No Hx Suicide Attempt: No Major Depressive Episode: No Feelings of Hopelessness: No - HEMATOLOGY/ONCOLOGY Hx Hematology/Oncology Disorders: No Hx Anemia: No Hx Blood Disorders: No Hx Bruising: No Hx Cancer: No Hx Chemotherapy: No Hx Radiation Therapy: No Hx Clotting Problems: No Hx Sickle Cell Disease: No Hx Unexplained Bleeding: No Hx Blood Transfusions: No Hx Blood Transfusion Reaction: No Family Medical History Any Significant Family History?: Yes Hx Diabetes: Mother Hx Heart Disease: Grandparents Hx HTN: Father, Mother Hx Liver Disease: Mother, Grandparents H&P Meds/Allergies - Allergies Allergies: Allergies Allergy/AdvReac Type Severity Reaction Status Date / Time No Known Drug Allergies Allergy Verified 06/28/18 12:46 - Home Medications Home Medications Medication Instructions Recorded Confirmed Last Taken Vitamin B Complex 1 each PO DAILY 06/28/18 06/28/18 Unknown Cetirizine HCl 10 mg PO DAILY PRN 06/29/18 06/29/18 Unknown Cholecalciferol (Vitamin D3) 5,000 unit PO DAILY 06/29/18 06/29/18 Unknown [Vitamin D3] Ibuprofen [Ibu] 800 mg PO TID PRN 06/29/18 06/29/18 Unknown Levothyroxine Sodium 100 mcg PO Q48H 06/29/18 06/29/18 Unknown Levothyroxine Sodium 112 mcg PO Q48H 06/29/18 06/29/18 Unknown - Active Medications Active Medications: Current Medications Acetaminophen (Tylenol 325mg) 650 mg PO Q4H PRN PRN Reason: PAIN - MILD(1-4)/FEVER Doxycycline Hyclate (Vibramycin) 100 mg PO BID [facility] Last Admin: 06/29/18 09:39 Dose: 100 mg Guaifenesin (Mucinex) 1,200 mg PO BID [facility] Last Admin: 06/29/18 09:43 Dose: 1,200 mg CEFTRIAXONE 1GM/50ML BAG (Ceftriaxone 1 Gm-D5w Bag) 1 gm in 50 mls @ 100 mls/ hr IVPB Q12H [facility] Levothyroxine Sodium (Synthroid) 100 mcg PO DAILYTHY [facility] Last Admin: 06/29/18 06:10 Dose: 100 mcg Pantoprazole Sodium (Protonix) 40 mg PO DAILYAC [facility] Last Admin: 06/29/18 06:10 Dose: 40 mg Physical Exam - Vital Signs Vital Signs: Vital Signs - Last 24 Hrs Temp Pulse Pulse Resp BP BP Pulse Ox 06/29/18 08:00 97.9 F 77 16 105/73 96 06/28/18 21:38 97.6 F 82 18 120/69 96 06/28/18 21:00 82 18 06/28/18 18:47 85 15 06/28/18 18:00 97.5 F L 85 15 139/85 97 06/28/18 14:44 97.8 F 91 H 18 117/77 99 06/28/18 12:41 97.9 F 93 H 18 114/82 99 - General General Appearance: Alert, Oriented x3, Cooperative, No acute distress Limitations: No limitations - Head Head exam: Atraumatic, Normocephalic, Normal inspection - Eye Eye exam: Normal appearance, PERRL, EOMI - Neck Neck exam: Normal inspection, Full ROM. negative: Tenderness - Respiratory Respiratory exam: Normal lung sounds bilaterally. negative: Decreased breath sounds, Respiratory distress, Rhonchi, Stridor, Wheezes - Cardiovascular Cardiovascular Exam: Regular rate, Normal rhythm, Normal heart sounds - GI/Abdominal GI/Abdominal exam: Soft, Normal bowel sounds. negative: Tenderness - Extremities Extremities exam: Normal inspection, Full ROM, Normal capillary refill. negative: Tenderness - Neurological Neurological exam: Alert. negative: Motor sensory deficit Results - Labs Result Diagrams: 06/29/18 06:10 06/29/18 06:10 Labs Last 24 Hours: Laboratory Results - last 24 hr 06/28/18 06/28/18 06/28/18 13:15 13:15 13:15 WBC RBC Hgb Hct MCV MCH MCHC RDW Plt Count MPV Gran % Lymphocytes % Monocytes % Eosinophils % Basophils % D-Dimer 0.26 Sodium Potassium Chloride Carbon Dioxide Anion Gap BUN Creatinine Estimated GFR Random Glucose Calcium Total Bilirubin AST ALT Alkaline Phosphatase Troponin T C-Reactive Protein 10.56 H Total Protein Albumin Globulin Albumin/Globulin Ratio Procalcitonin 0.329 TSH Urine Color Yellow Urine Appearance Clear Urine pH 6.0 Ur Specific [place] 1.025 Urine Protein Negative Urine Glucose (UA) Negative Urine Ketones 160 mg/dl H Urine Blood Trace-i Urine Nitrite Negative Urine Bilirubin Small H Urine Urobilinogen 0.2 Ur Leukocyte Esterase Negative Urine RBC 3 - 6 Urine WBC None seen Ur Epithelial Cells 0 - 2 Urine HCG, Qual Negative 06/28/18 06/28/18 06/29/18 13:15 13:15 06:10 WBC 11.3 RBC 3.92 Hgb 11.5 L Hct 36.4 MCV 92.9 MCH 29.3 MCHC 31.6 L RDW 14.6 H Plt Count 287 MPV 11.2 H Gran % 78.8 Lymphocytes % 11.0 L Monocytes % 6.1 Eosinophils % 3.9 Basophils % 0.2 D-Dimer Sodium Potassium Chloride Carbon Dioxide Anion Gap BUN Creatinine Estimated GFR Random Glucose Calcium Total Bilirubin AST ALT Alkaline Phosphatase Troponin T < 0.010 C-Reactive Protein Total Protein Albumin Globulin Albumin/Globulin Ratio Procalcitonin TSH 0.43 Urine Color Urine Appearance Urine pH Ur Specific [place] Urine Protein Urine Glucose (UA) Urine Ketones Urine Blood Urine Nitrite Urine Bilirubin Urine Urobilinogen Ur Leukocyte Esterase Urine RBC Urine WBC Ur Epithelial Cells Urine HCG, Qual 06/29/18 06/29/18 06:10 06:10 WBC RBC Hgb Hct MCV MCH MCHC RDW Plt Count MPV Gran % Lymphocytes % Monocytes % Eosinophils % Basophils % D-Dimer Sodium 142 Potassium 3.7 Chloride 109 H Carbon Dioxide 21.0 L Anion Gap 12.0 BUN 5 L Creatinine 0.6 Estimated GFR > 60 Random Glucose 98 Calcium 8.3 L Total Bilirubin 0.30 AST 11 ALT 14 Alkaline Phosphatase 66 Troponin T C-Reactive Protein 9.86 H Total Protein 6.1 L Albumin 3.6 L Globulin 2.5 Albumin/Globulin Ratio 1.4 Procalcitonin 0.127 TSH Urine Color Urine Appearance Urine pH Ur Specific [place] Urine Protein Urine Glucose (UA) Urine Ketones Urine Blood Urine Nitrite Urine Bilirubin Urine Urobilinogen Ur Leukocyte Esterase Urine RBC Urine WBC Ur Epithelial Cells Urine HCG, Qual - Imaging and Cardiology Chest x-ray Status: Report reviewed (negative for acute processs) CT scan - abdomen Status: Report reviewed (atelectasis in bilateral lung bases and 6mm right renal calculus) VTE H&P Assessment - Risk for VTE Risk for VTE: Yes Risk Level: Low Risk Assessment Date: 06/29/18 Risk Assessment Time: 10:38 VTE Orders Placed or Will Be Placed: Yes Plan - Detailed Diagnosis and Plan (1) Pneumonia Current Visit: Yes Status: Acute Qualifiers: Pneumonia type: due to unspecified organism Laterality: unspecified laterality Lung location: unspecified part of lung Qualified Code(s): J18.9 - Pneumonia, unspecified organism Base Code: J18.9 - PNEUMONIA, UNSPECIFIED ORGANISM Comment: 06/29/18: -Bilateral LL pneumonia on abd/pelvis CT -Treating with rocephin 1g q12h and doxy 100mg PO bid, changing rocephin to PO cefdinir 300mg bid today -Added mucinex 1200mg bid (2) At risk for deep venous thrombosis Current Visit: Yes Status: Acute Base Code: Z91.89 - OTH PERSONAL RISK FACTORS, NOT ELSEWHERE CLASSIFIED Comment: 06/29/18: -Low risk for DVT, will add lovenox 40mg SC for prophylaxis of hospitalization greater than 24 hours (3) Full code status Current Visit: Yes Status: Acute Base Code: Z78.9 - OTHER SPECIFIED HEALTH STATUS Comment: 06/29/18: -Pt. is a full code
--- NOTE | 2018-06-29 14:48 | Discharge Summary ---
Providers Discharge Summary Date: 06/29/18 Date of admission: 06/28/18 17:51 Expected Date of Discharge: 06/29/18 Attending physician: JEIMY ABEL Primary care physician: IVY AGUIRRE D.O. Physical Exam - Vital Signs Vital Signs: Vital Signs - Last 24 Hrs Temp Pulse Resp BP Pulse Ox 06/29/18 12:00 97.7 F 77 17 121/82 95 06/29/18 09:00 16 06/29/18 08:00 97.9 F 77 16 105/73 96 06/28/18 21:38 97.6 F 82 18 120/69 96 06/28/18 21:00 82 18 06/28/18 18:47 85 15 06/28/18 18:00 97.5 F L 85 15 139/85 97 06/28/18 14:44 97.8 F 91 H 18 117/77 99 - General General Appearance: Alert, Oriented x3, Cooperative, No acute distress Limitations: No limitations - Head Head exam: Atraumatic, Normocephalic, Normal inspection - Eye Eye exam: Normal appearance, PERRL, EOMI - Neck Neck exam: Normal inspection, Full ROM. negative: Tenderness - Respiratory Respiratory exam: Normal lung sounds bilaterally. negative: Decreased breath sounds, Respiratory distress, Rhonchi, Stridor, Wheezes - Cardiovascular Cardiovascular Exam: Regular rate, Normal rhythm, Normal heart sounds - GI/Abdominal GI/Abdominal exam: Soft, Normal bowel sounds. negative: Tenderness - Extremities Extremities exam: Normal inspection, Full ROM, Normal capillary refill. negative: Tenderness - Neurological Neurological exam: Alert. negative: Motor sensory deficit Hospitalization - Hospitalization Admission Diagnosis: 1. Acute Pneumonia - Problem List/Discharge Diagnosis (1) Pneumonia Status: Acute Discharge Diagnosis: Pneumonia type: due to unspecified organism Laterality: unspecified laterality Lung location: unspecified part of lung Qualified Code(s): J18.9 - Pneumonia, unspecified organism Base Code: J18.9 - PNEUMONIA, UNSPECIFIED ORGANISM Comment: 06/29/18: -Bilateral LL pneumonia on abd/pelvis CT -Treating with rocephin 1g q12h and doxy 100mg PO bid, changing rocephin to PO cefdinir 300mg bid today -Added mucinex 1200mg bid (2) At risk for deep venous thrombosis Status: Acute Base Code: Z91.89 - OTH PERSONAL RISK FACTORS, NOT ELSEWHERE CLASSIFIED Comment: 06/29/18: -Will not d/c home with prophylaxis- pt. to return to normal level of activity (3) Full code status Status: Acute Base Code: Z78.9 - OTHER SPECIFIED HEALTH STATUS Comment: 06/29: -Pt. is a full code - Hospitalization Course Disposition: Home, Self-Care Hospital Course: Mrs. Mcgill is a pleasant 37 year-old female who presented to the ED on with c/o not feeling well for 2 days. She reported body aches and bilateral flank pain with vomiting that day and mild cough. She reported inability to take a deep breath. She was seen at [facility] referred to the ED due to elevated WBC and concern for possible kidney stone/infection due to hematuria. Her history includes pancreatitis, colitis, hypothyroidism, anxiety, and kidney stone. In the ED, her vitals were: BP 114/82, HR 93, RR 18, 99% on room air and T 97.9F. Her WBC was 20,800, 8% bands, prolcalcitonin 0.329, CRP 10.56. CT demonstrated atelectasis, possible early pneumonia. A 6mm calculus in lower pole of right kidney- non-obstructing. She was going to be d/c'd home on oral doxy, however, she has an episode of nausea and vomiting. She was admitted observation with planned IV abx and IVF. 06/29/18: Pt. is sitting up in bed. She reports coughing up large amounts of thick sputum today. Labs have greatly improved this morning, WBC now 11.3, procalcitonin 0.127. Her vitals have remained stable, she's remained afebrile, and she denies nausea. She is tolerating regular diet well. Added mucinex, will plan to change abx to PO, will plan to d/c home this afternoon if pt. continues to improve. Pt. continues to improve, VSS, pt. has remained afebrile. Will discharge home today. Pt. to f/u with her PCP in 3-5 days. PCP: Paige Aguirre Procedures: Imaging and X-Rays 06/28/18 14:14 ABDOMEN/PELVIS WO CONTRAST [CT] Stat Cardiology Procedures 06/28/18 12:58 EKG NOW Abnormal Labs: Abnormal Lab Results 06/28/18 06/28/18 06/29/18 Range/Units 13:15 13:15 06:10 Hgb 11.5 L (11.6-16.0) gm/dl MCHC 31.6 L (32-36) g/dl RDW 14.6 H (11.5-14.5) % MPV 11.2 H (7.4-10.4) fl Lymphocytes % 11.0 L (16-45) % Chloride (98-107) mmol/L Carbon Dioxide (22-29) mmol/L BUN (6-20) mg/dL Calcium (8.6-10.0) mg/dL C-Reactive Protein 10.56 H (<0.5) mg/dL Total Protein (6.6-8.7) g/dL Albumin (4.0-5.0) g/dL Urine Ketones 160 mg/dl H (NEGATIVE) Urine Bilirubin Small H (NEGATIVE) 06/29/18 Range/Units 06:10 Hgb (11.6-16.0) gm/dl MCHC (32-36) g/dl RDW (11.5-14.5) % MPV (7.4-10.4) fl Lymphocytes % (16-45) % Chloride 109 H (98-107) mmol/L Carbon Dioxide 21.0 L (22-29) mmol/L BUN 5 L (6-20) mg/dL Calcium 8.3 L (8.6-10.0) mg/dL C-Reactive Protein 9.86 H (<0.5) mg/dL Total Protein 6.1 L (6.6-8.7) g/dL Albumin 3.6 L (4.0-5.0) g/dL Urine Ketones (NEGATIVE) Urine Bilirubin (NEGATIVE) Condition at Discharge: (2) Stable Discharge Diagnosis: Pneumonia VTE Discharge VTE Reason For No Overlap Therapy: Not Indicated Discharge Medications - Discharge Medications Prescriptions: Bifidobacterium Infantis [Align] 4 mg PO DAILY #30 capsule Cefdinir 300 mg PO BID #9 capsule Doxycycline Hyclate [Vibramycin] 100 mg PO BID #9 capsule Home Medications: Ambulatory Orders Fluticasone Propionate 16 gm IH QHS 04/25/17 [Last Taken Unknown] Magnesium Oxide [Magnesium] 400 mg PO DAILY cap 06/08/18 [Last Taken Unknown] Omeprazole [Prilosec] 20 mg PO DAILY 06/08/18 [Last Taken Unknown] Vitamin B Complex 1 each PO DAILY 06/28/18 [Last Taken Unknown] Bifidobacterium Infantis [Align] 4 mg PO DAILY #30 capsule 06/29/18 [Last Taken Unknown] Cefdinir 300 mg PO BID #9 capsule 06/29/18 [Last Taken Unknown] Cetirizine HCl 10 mg PO DAILY PRN 06/29/18 [Last Taken Unknown] Cholecalciferol (Vitamin D3) [Vitamin D3] 5,000 unit PO DAILY 06/29/18 [Last Taken Unknown] Doxycycline Hyclate [Vibramycin] 100 mg PO BID #9 capsule 06/29/18 [Last Taken Unknown] Ibuprofen [Ibu] 800 mg PO TID PRN 06/29/18 [Last Taken Unknown] Levothyroxine Sodium 100 mcg PO Q48H 06/29/18 [Last Taken Unknown] Levothyroxine Sodium 112 mcg PO Q48H 06/29/18 [Last Taken Unknown] Discharge Plan - Discharge Instructions Activity at Discharge: Increase Activity as Tolerated Diet at Discharge: Regular Diet Instructions: Pneumonia (DC) Additional Instructions: 2 Activity: Increase Activity as Tolerated 2 Diet: Regular Diet 2 Consults: [] 2 Follow Up: [] Follow up with your pcp in 3-5 days 2 Dressing/Wound Care: (Type) (Change) 2 Additional: [] Start doxycycline 100mg twice daily- first home dose this evening Start cefdinir 300mg twice daily- first home dose this evening Robitussin DM otc ad directed prn Use mucinex over the counter to help thin secretions -Increases fluids Use probiotic (align) to help keep healthy gut bacteria and help prevent c diff Return to the ED if symptoms worsen, or for any chest pain Quality Measures - Quality Measures Quality Measures: Documentation of Current Medications in Medical Record, Screening for High Blood Pressure and F/U Documented - Current Medications Quality Measure: Measure #130: Documentation of Current Medications Documentation of Current Medications: <Current Medications Documented/Reviewed> [G8427] - Blood Pressure Screening Quality Measure: Screening for High Blood Pressure and Follow-Up Documented Does Patient Have Any of the Following: No Blood Pressure Classification: Pre-Hypertensive BP Reading Systolic Measurement: 114 Diastolic Measurement: 82 Screening for High Blood Pressure: < Pre-Hypertensive BP, F/U Documented > [ [id number]] Pre-Hypertensive Follow-up Interventions: Follow-up with rescreen every year. - Elder Abuse Suspicion Index EASI Reference Information: Gila WHITMORE, Katy Ray, Anurag Kinsey, Cecilia Washington.Development and validation of a tool to assist physicians identification of elder abuse: The Elder Abuse Suspicion Index (EASI ). Journal of Elder Abuse and Neglect, 2008; 20 (3): 276-300.
[2018-06-29] MEDS ORDERED: CEFTRIAXONE 1GM/50ML BAG 1 GM/50 ML BAG IVPB SCH (18:00)
[2018-06-29] MEDS ORDERED: CEFDINIR 300 MG CAPSULE PO SCH (22:00)
== END 2018-06-29 16:37 | disposition home or self-care (01) ==
LOC: ER 12:39 → MEDSURG 17:51
PROVIDERS: ADMIT Internal Medicine; ATTEND Internal Medicine
DX: J18.9 Pneumonia, unspecified organism (principal); R11.2 Nausea with vomiting, unspecified; M54.5 Low back pain; E03.9 Hypothyroidism, unspecified; K85.90 Acute pancreatitis without necrosis or infection, unspecified; K52.9 Noninfective gastroenteritis and colitis, unspecified
CPT/HCPCS: 99285 ×2; 96365; 96375; 96361; 82150; 83690; 85025; 86140 ×2; 80053 ×2; 81001; 84443; 81025; 84145 ×2; 84484; 85379; 85027; 71046; 74176; 93005; 93010; 90686; G0378 ×2; J2405; J0696; 99220; J7030